=== PATIENT | male | born 2000 | race Caucasian/White ===

== ENCOUNTER 2020-06-04 14:39 | Emergency (ER) | payer MEDICAID ==
[2020-06-04 15:40] LABS: BASOPHILS % (AUTO) 0.4 % (0-1); EOSINOPHILS # (AUTO) 0.2 X10'3 (0-0.9); EOSINOPHILS % (AUTO) 1.7 % (0-6); HEMATOCRIT 45.7 % (42.0-52.0); HEMOGLOBIN 15.3 g/dl (14.0-17.9); LYMPHOCYTES % (AUTO) 21.6 % (21-51); MEAN CORPUSCULAR HEMOGLOBIN 28.9 PG (27.0-31.0); MEAN CORPUSCULAR HGB CONC 33.5 g/dL (33.0-36.5); MEAN CORPUSCULAR VOLUME 86.3 FL (78-98); MEAN PLATELET VOLUME 8.5 FL (7.4-10.4); MONOCYTES % (AUTO) 10.8 % (2-12); NEUTROPHILS # (AUTO) 6.1 X10'3 (1.8-7.7); NEUTROPHILS % (AUTO) 65.5 % (42-75); PLATELET COUNT 217 X10'3 (140-440); RED CELL DISTRIBUTION WIDTH 13.9 % (11.5-14.5); WHITE BLOOD COUNT 9.4 X10'3 (4.5-11.0)
[2020-06-04 15:55] LABS: ALANINE AMINOTRANSFERASE 34 U/L (12-78); ALBUMIN 3.9 G/DL (3.4-5.0); ALKALINE PHOSPHATASE 97 IU/L (46-116); ANION GAP 10 (8-16); ASPARTATE AMINO TRANSFERASE 26 U/L (10-37); BILIRUBIN,TOTAL 0.3 MG/DL (0.1-1.0); BLOOD UREA NITROGEN 14 MG/DL (7-18); BUN/CREATININE RATIO 11.1 (5.4-32.0); CALCIUM 9.2 MG/DL (8.5-10.1); CHLORIDE 105 MMOL/L (99-107); CREATININE 1.26 MG/DL (0.60-1.10); ETHANOL < 0.010 GM/DL (0.0-0.010); GLUCOSE 115 MG/DL (70-104); POTASSIUM 3.9 MMOL/L (3.5-5.1); SODIUM 143 MMOL/L (135-145); TOTAL CARBON DIOXIDE 28.2 MMOL/L (24-32); eGFR 72 ML/MIN
[2020-06-04 16:03] LABS: URINE AMPHETAMINE SCREEN NEGATIVE (Neg); URINE BARBITUATE SCREEN NEGATIVE (Neg); URINE BENZODIAZEPINES SCREEN NEGATIVE (Neg); URINE CANNABINOID SCREEN NEGATIVE (Neg); URINE COCAINE SCREEN NEGATIVE (Neg); URINE METHADONE SCREEN NEGATIVE (Neg); URINE OPIATE SCREEN NEGATIVE (Neg); URINE PHENCYCLIDINE SCREEN NEGATIVE (Neg)
--- NOTE | 2020-06-04 16:15 | NUR ---
PACKET FAXED TO [facility]
--- NOTE | 2020-06-04 16:31 | NUR ---
Received pt on overflow. Pt pleasant and interactive; though, delusional and begins to discuss conspiratory theories.
--- NOTE | 2020-06-04 16:43 | NUR ---
Patient belongings but in room 27 in white belongings bag with patient sticker placed on bag. Belongings sheet filled out.
--- NOTE | 2020-06-04 17:00 | NUR ---
Pt calm and cooperative. Pt cooperative with COVID test.
[2020-06-04] MEDS ORDERED: NO HOME MEDS (18:06)
--- NOTE | 2020-06-04 18:30 | NUR ---
Patient is lying down in his bed. No s/s of distress noted at this time
--- NOTE | 2020-06-04 20:24 | NUR ---
Patient remains in his bed and appears to be resting comfortably. No s/s of distress noted
--- NOTE | 2020-06-04 21:59 | NUR ---
Patient remains in his bed and appears to be resting comfortably. No s/s of distress noted
--- NOTE | 2020-06-04 23:20 | NUR ---
Patient remains in his bed and appears to be resting comfortably. No s/s of distress noted
--- NOTE | 2020-06-05 00:41 | NUR ---
Patient remains in his bed and appears to be resting comfortably. No s/s of distress noted
--- NOTE | 2020-06-05 01:34 | NUR ---
Pt. used the bathroom x1 and returned to bed to sleep. Denies discomfort.
--- NOTE | 2020-06-05 02:59 | NUR ---
Patient remains in his bed and appears to be resting comfortably. No s/s of distress noted
--- NOTE | 2020-06-05 03:58 | NUR ---
Patient remains in his bed and appears to be resting comfortably. No s/s of distress noted
--- NOTE | 2020-06-05 04:58 | NUR ---
Pt transferred to ER room 8 via bed. No s/s of distress noted at this time
--- NOTE | 2020-06-05 06:57 | NUR ---
PT STANDING AT THE DOOR STARING OUT. ASK PT IF HE TAKES ANY MEDICATIIONS AND PT STATES HE DOESNT. MEDICATIONS ARE BAD FOR HIM. "WHY ARE YOU PUSHING DRUGS ON TO ME?" PT STATES HE DOESNT NEED ANY MEDICATIONS. PT STATES HE STILL FEELS SI AND HI.
--- NOTE | 2020-06-05 07:26 | NUR ---
PT CALLS THE NURSE TO THE ROOM AND EXPLAINS HE IS JUST TRYING TO WAKE UP AND HE HAS A LOT ON HIS MIND AND NO ONE TO TALK TO. PT AGREES TO TALK TO [facility] PROVIDER WHEN THEY COME IN.
--- NOTE | 2020-06-05 09:01 | NUR ---
SITTER ESCORTS PT TO BATH AND BACK TO ROOM. PT CONTINUES TO STAND AT GLASS DOOR STARING OUT TO HALLWAY.
--- NOTE | 2020-06-05 10:51 | NUR ---
PT C/O PENILE ERECTION PROBLEM. DR MOODY IN ROOM TO EVALUATE BUT DOESNT FIND ANY PROBLEMS AT THIS TIME.
--- NOTE | 2020-06-05 13:20 | NUR ---
PT CONTINUES TO STAND AT THE GLASS DOORS STARING OUT AND WATCHING NURSES AT THE NURSES STATION.
--- NOTE | 2020-06-05 13:52 | NUR ---
PT GIVEN LUNCH TRAY. "LOOKS GOOD" PT STATES.
--- NOTE | 2020-06-05 18:05 | NUR ---
PT QUIETLY STANDING AT AT THE OPEN DOOR LOOKING AT THE NURSES STATION.
--- NOTE | 2020-06-05 18:54 | NUR ---
Assumed care of patient that is on the side of his bed eating dinner. No distress noted.
--- NOTE | 2020-06-05 19:05 | NUR ---
Patient out to use the restroom. Denies needs. Patient waiting to have a conversation with this RN about his situation.
--- NOTE | 2020-06-05 21:34 | NUR ---
The patient is in his room reading magazines that were provided to him. He has been calm and cooperative with staff. The patient is intelligent and articulate. He has opened up to this procedure writer, and has shown that he is open to new ideas, and is finding reasons to live.
--- NOTE | 2020-06-05 23:20 | NUR ---
The patient appears to be asleep on his left side. His head is at the foot of his bed. Breathing is even and unlabored. No s/s of distress.
--- NOTE | 2020-06-06 01:23 | NUR ---
The patient continues to sleep on his left side. No distress.
--- NOTE | 2020-06-06 02:45 | NUR ---
Patient appears to be sleeping on his right side. No s/s of distress noted.
--- NOTE | 2020-06-06 02:46 | NUR ---
Patient appears to be sleeping on her left side. No s/s of distress noted.
--- NOTE | 2020-06-06 03:38 | NUR ---
PT appears to be sleeping, RR 16. Assumed care from NIRU Caldera
--- NOTE | 2020-06-06 04:43 | NUR ---
pt is sleeping, flipped around in bed, [id number].
--- NOTE | 2020-06-06 05:25 | NUR ---
Pt vitals taken and pt safely ambulated to restroom and back to bed.
--- NOTE | 2020-06-06 06:01 | NUR ---
Pt standing at doorway of room, states he has no desire to lay down in bed. Pt continues to stare at nurses station and other pt rooms continuously after several attempts to have pt lay down or sit down. Pt also pacing back and forth in room in front of door.
--- NOTE | 2020-06-06 06:04 | NUR ---
Pt has pen in hand, twirling between fingers as he watches staff walk by. Pt asked to give pen to staff, and refuses stating "I am not going to hurt anyone with it."
--- NOTE | 2020-06-06 07:06 | NUR ---
PT ESCORTED BACK TO ROOM BY SECURITY, PT REPORTS HE WANTS TO LEAVE. PT REMINDED HE IS ON A 5150 PT HAD REPORTED DESIRE TO HARM OTHERS. PT WILLING WALKED BACK TO ROOM.
--- NOTE | 2020-06-06 09:00 | NUR ---
PT KEEPS TAKING MASK OFF AND STANDS AT DOORWAY. PT REMINDED OF POLICY AND PT TO WEAR MASK WHEN IF UP AT DOORWAY OR TO HAVE GLASS DOORS CLOSED. PT NOW WITH MASK ON AFTER SPOKEN TO BY SEVERAL STAFF MEMBERS.
[2020-06-06] MEDS ORDERED: LORazepam 1 MG tablet PO ONE (10:40)
--- NOTE | 2020-06-06 11:03 | NUR ---
PT IS STANDING OUTSIDE THIS ROOM. PT IS HOSTILE TOWARDS STAFF. PT IS PARANOID
[2020-06-06] MEDS ORDERED: LORazepam 2 mg/ml vial IM ONE (11:55)
[2020-06-06] MEDS ORDERED: OLANZapine **IM** 10 mg inj. IM ONE (11:55)
--- NOTE | 2020-06-06 12:00 | NUR ---
SECURITY HAS BEEN CALLED NUMEROUS TIMES FOR THE PATIENT. PT IS HOSTILE TOWARDS STAFF. PT LIKES SIT IN THE BATHROOM. PT IS USING FOOL LANGUAGE
--- NOTE | 2020-06-06 13:00 | NUR ---
PT IS RESTING NO ISSUES
--- NOTE | 2020-06-06 14:00 | NUR ---
PT IS RESTING NO ISSUES
--- NOTE | 2020-06-06 15:00 | NUR ---
PT IS RESTING NO ISSUES
--- NOTE | 2020-06-06 16:00 | NUR ---
pt is sleeping
--- NOTE | 2020-06-06 17:00 | NUR ---
pt is sleeping
--- NOTE | 2020-06-06 17:58 | NUR ---
pt is sleeping
--- NOTE | 2020-06-06 18:00 | NUR ---
PT REFUSED VITALS
--- NOTE | 2020-06-06 18:21 | NUR ---
Pt quietly sitting in bed, rr 14 no s/s distress.
--- NOTE | 2020-06-06 18:37 | NUR ---
pt is awake an irritable, requesting a cup for his water and was provided with one. Pt states "I'm disappointed my rights have been violated and I want to leave immediately." Explained to patient he is on a hold and asked if he plans on attempting to leave. Pt states "No, you have security guards with security written all over them!" Pt c/o his rights being violated and I explained he can complete a greivance if he'd like and pt declined to do so and instead requested to look at magazines he had had been looking at earlier. Asked pt if he was having any pain and he denied any pain. Pt states "I'd rather not answer for any other questions." Pt states he is here "because of the system that brought me here."
--- NOTE | 2020-06-06 20:38 | NUR ---
pt resting in bed comfortably after reading a book for a while, he got bored w/magazines and requested a book. Pt was encouraged to give urine sample but declined. States he will do it when he uses the bathroom next.
--- NOTE | 2020-06-06 22:36 | NUR ---
Pt in bed sleeping rr even and unlabored no s/s distress
--- NOTE | 2020-06-06 23:57 | NUR ---
pt asleep rr even and unlabored
--- NOTE | 2020-06-07 02:27 | NUR ---
pt is sleeping comfortably rr even and unlabored
--- NOTE | 2020-06-07 05:23 | NUR ---
pt awake, up to use the toilet, urine sent to the lab. Pt is calm cooperative, states he slept well and is standing next to his bed.
[2020-06-07 05:32] LABS: CLARITY,URINE CLEAR (Clear); COLOR,URINE YELLOW (Yellow); GLUCOSE, URINE NEGATIVE (Neg); KETONES,URINE NEGATIVE (Neg); LEUKOCYTE ESTERASE ,URINE NEGATIVE (Neg); NITRITES, URINE NEGATIVE (Neg); OCCULT BLOOD,URINE NEGATIVE (Neg); PROTEIN,URINE NEGATIVE (Neg); UROBILINOGEN,URINE 0.2 E.U/dL (0.2-1.0)
[2020-06-07 05:35] LABS: UA COLLECTION TYPE CLN CATCH MIDSTREAM
--- NOTE | 2020-06-07 06:58 | NUR ---
Patient sitting up in bed reading magazine. Patient desires to discharge "as soon as I am medically clear, I want to walk out of here without security stopping me". Patient does not have a discharge destination, and wants to be discharged to the streets.
--- NOTE | 2020-06-07 08:43 | NUR ---
Remigio from [facility] here to evaluate patient. Patient now eating breakfast. Cooperative and calm today.
--- NOTE | 2020-06-07 09:34 | NUR ---
Patient is being discharged. Information was given by Remigio by [facility] for the [facility]. Patient was walked out by security and is in stable condition. Patient denies SI/HI.
[2020-06-07 09:35] VITALS: BP 129/94
== END 2020-06-07 09:38 | disposition home or self-care (01) ==
LOC: ER 14:40
DX: R45.851 Suicidal ideations (principal); R45.850 Homicidal ideations; Z20.828 Contact with and (suspected) exposure to other viral communicable diseases
CPT/HCPCS: 36415; 80053; 80305; 80320; 81003; 85025; 87426; 96372; 99285